=== PATIENT | female | born 1945 | race Two or more races ===

== ENCOUNTER 2018-02-15 06:24 | Day surgery (SDC) | payer OTHER ==
[~2018-02-15] VITALS: Ht 165.1 cm; Wt 86.2 kg
[~2018-02-15 06:24] MED LIST: BENA40TA3 PO
[2018-02-15] MEDS ORDERED: LIDOCAINE HCL/PF 1% 10 MG/ML 5ML VIAL ONE ×3 (07:40→13:51)
[2018-02-15] MEDS ORDERED: SODIUM BICARBONATE 4% (2.4MEQ) 5ML VIAL IV ONE (07:41)
[2018-02-15] MEDS ORDERED: BUPIVACAINE HCL/PF 0.5% (5MG/ML) 10ML ONE ×2 (08:21→13:51)
[2018-02-15] MEDS ORDERED: SKIN ADHESIVE 0.7 GM EA TOP ONE (08:21)
[2018-02-15] MEDS ORDERED: BACITRACIN ZINC 15GM TUBE TOP ONE (08:21)
[2018-02-15] MEDS ORDERED: BACITRACIN 50,000 UNITS/VIAL ONE ×2 (08:22→13:26)
[2018-02-15] MEDS ORDERED: NORMAL SALINE 0.9% 10 ML SYR ONE ×2 (08:22→13:26)
[2018-02-15] MEDS ORDERED: METHYLENE BLUE 50 MG/10 ML AMP IV ONE (12:45)
[2018-02-15] MEDS ORDERED: SODIUM CHLORIDE 0.9% 10ML VIAL ONE (12:46)
[2018-02-15] MEDS ORDERED: FENTANYL CITRATE/PF 50MCG/ML 2ML VIAL ONE ×2 (13:02→13:39)
[2018-02-15] MEDS ORDERED: MIDAZOLAM HCL 2 MG/2 ML VIAL ONE (13:02)
[2018-02-15] MEDS ORDERED: PROPOFOL 200MG/20ML VIAL IV ONE (13:02)
[2018-02-15] MEDS ORDERED: ONDANSETRON HCL 4MG/2ML VIAL ONE (13:03)
[2018-02-15] MEDS ORDERED: METOCLOPRAMIDE HCL 10MG/2ML VIAL ONE (13:15)
[2018-02-15] MEDS ORDERED: MEPERIDINE HCL/PF 25MG/ML CPJ IV PRN (13:30)
[2018-02-15] MEDS ORDERED: ONDANSETRON HCL 4MG/2ML VIAL IV PRN (13:30)
[2018-02-15] MEDS ORDERED: LABETALOL 5MG/ML SYR 20 MG/4 ML SYRINGE IV PRN (13:30)
[2018-02-15] MEDS ORDERED: HYDROMORPHONE HCL/PF 2MG/ML CPJ IV PRN (13:30)
[2018-02-15] MEDS ORDERED: KETOROLAC 30MG/ML VIAL ONE (13:49)
[2018-02-15] MEDS ORDERED: BUPIVACAINE HCL/PF 0.25% (2.5MG/ML) 10ML ONE (13:52)
== END 2018-02-15 16:30 | disposition home or self-care (01) ==
LOC: RAD 06:24
PROVIDERS: ATTEND Specialist
DX: D24.1 Benign neoplasm of right breast (principal); N60.91 Unspecified benign mammary dysplasia of right breast; N60.11 Diffuse cystic mastopathy of right breast; I10 Essential (primary) hypertension; E78.00 Pure hypercholesterolemia, unspecified; Z79.899 Other long term (current) drug therapy; Z90.49 Acquired absence of other specified parts of digestive tract; Z98.890 Other specified postprocedural states; E66.9 Obesity, unspecified; M19.90 Unspecified osteoarthritis, unspecified site
CPT/HCPCS: 19281; 88309; A4216; G0168; J1885; J2250; J2405; J2765; J3010; J3490; J7120; J2704; Q9968